=== PATIENT | female | born 1970 | race Caucasian/White ===

== ENCOUNTER 2020-08-06 13:00 | Observation (INO) ==
[2020-08-06 14:33] LABS: Basophils # 0.1 K/mcL (0.0-0.2); Hematocrit 42.6 % (35.3-44.9); Hemoglobin 14.3 g/dL (11.5-15.4); Mean Corpuscular HGB Conc 33.6 g/dL (31.6-35.5); Mean Corpuscular Hemoglobin 31.3 pg (28.0-33.3); Mean Corpuscular Volume 93.2 fL (83.0-100.0); Mean Platelet Volume 9.8 fL (9.4-12.4); Monocytes # 0.6 K/mcL (0.0-1.3); Platelet Count 330 K/mcL (140-400); Red Blood Count 4.57 M/mcL (3.82-4.97); Red Cell Distribution Width 12.5 % (11.5-14.5); White Blood Count 8.6 K/mcL (4.3-11.1)
[2020-08-06] MEDS ORDERED: *HR* Labetalol 20 MG/4 ML SYRINGE IVP ONE ×2 (14:58→16:20)
[2020-08-06 15:02] LABS: Bilirubin,Urine Negative (Negative); Blood,Urine Large (Negative); Clarity,Urine Clear (Clear); Color,Urine Colorless (Yellow); Glucose,Urine (UA) Normal (Normal); Ketones,Urine Negative (Negative); Leukocyte Esterase,Urine Negative (Negative); Nitrite,Urine Negative (Negative); Protein,Urine 30 mg/dL (Neg-Trace); Urobilinogen,Urine Normal (Normal)
[2020-08-06 15:02] LABS: BUN/Creatinine Ratio 13 (6-26); Blood Urea Nitrogen 9 mg/dL (6-20); Calcium 8.8 mg/dL (8.6-10.3); Carbon Dioxide 26 mEq/L (23-29); Chloride 107 mEq/L (98-107); Chol/HDL Ratio 3.7 (0-4.9); Cholesterol 136 mg/dL (< 200); Glucose 100 mg/dL (70-105); HDL Cholesterol 37 mg/dL (40-59); LDL Cholesterol,Calculated 71 mg/dL (< 100); Osmolality,Calculated 285 (280-300); Potassium 4.1 mEq/L (3.5-5.1); Sodium 138 mEq/L (136-145); Triglycerides 142 mg/dL (< 150); eGFR For African Americans > 60 (> 60); eGFR For Non-African Americans > 60 (> 60)
[2020-08-06 15:06] LABS: Eosinophils # 0.4 K/mcL (0.0-0.6); Lymphocytes # 3.3 K/mcL (0.6-4.6); Neutrophils # 4.2 K/mcL (1.6-8.9); Platelet Estimate Normal (Normal); Reactive Lymphocytes Present (Not Present)
[2020-08-06 15:17] LABS: Troponin I < 0.03 ng/mL (< 0.04)
[2020-08-06] MEDS ORDERED: Aspirin 325 MG TABLET PO ONE (15:30)
[2020-08-06] MEDS ORDERED: lisinopriL 20 MG TABLET PO SCH (16:30)
[2020-08-06] MEDS ORDERED: Naloxone 0.4 MG/ML INJ IVP PRN (17:05)
[2020-08-06] MEDS ORDERED: Ondansetron 4 MG/2 ML VIAL IVP PRN (17:05)
[2020-08-06] MEDS ORDERED: *HR* Labetalol 20 MG/4 ML SYRINGE IVP PRN (17:39)
[2020-08-06 18:07] LABS: Thyroid Stimulating Hormone 0.102 mcIU/mL (0.340-5.600)
[2020-08-06] MEDS ORDERED: amLODIPine 5 MG TABLET PO SCH (19:00)
[2020-08-06] MEDS ORDERED: carvediloL 25 MG TABLET PO SCH (21:00)
[2020-08-06] MEDS ORDERED: 0.9 % Sodium Chloride 250 ML IV PRN (21:10)
[2020-08-06] MEDS ORDERED: 0.9 % Sodium Chloride 250 ML ONE (21:13)
[2020-08-07] MEDS: Nicotine 14 MG PATCH.TD24 TD SCH ×2 (00:03→08:49)
[2020-08-07] MEDS: Acetaminophen 325 MG TABLET PO PRN ×2 (02:03→09:17)
[2020-08-07 02:41] LABS: Basophils # 0.1 K/mcL (0.0-0.2); Basophils % 0.5 %; Eosinophils # 0.4 K/mcL (0.0-0.6); Eosinophils % 3.7 %; Hematocrit 39.3 % (35.3-44.9); Hemoglobin 13.3 g/dL (11.5-15.4); Immature Granulocytes % 0.4 % (0-4); Lymphocytes # 1.8 K/mcL (0.6-4.6); Lymphocytes % 17.4 %; Mean Corpuscular HGB Conc 33.8 g/dL (31.6-35.5); Mean Corpuscular Hemoglobin 31.4 pg (28.0-33.3); Mean Corpuscular Volume 92.9 fL (83.0-100.0); Monocytes # 0.7 K/mcL (0.0-1.3); Monocytes % 6.9 %; Neutrophils # 7.3 K/mcL (1.6-8.9); Platelet Count 300 K/mcL (140-400); Red Blood Count 4.23 M/mcL (3.82-4.97); Red Cell Distribution Width 12.5 % (11.5-14.5); Segmented Neutrophils % 71.1 %; White Blood Count 10.2 K/mcL (4.3-11.1)
[2020-08-07 03:00] LABS: BUN/Creatinine Ratio 16 (6-26); Blood Urea Nitrogen 15 mg/dL (6-20); Calcium 8.5 mg/dL (8.6-10.3); Carbon Dioxide 21 mEq/L (23-29); Chloride 107 mEq/L (98-107); Glucose 112 mg/dL (70-105); Magnesium 1.7 mg/dL (1.6-2.6); Osmolality,Calculated 284 (280-300); Potassium 3.5 mEq/L (3.5-5.1); Sodium 136 mEq/L (136-145); Troponin I < 0.03 ng/mL (< 0.04); eGFR For African Americans > 60 (> 60); eGFR For Non-African Americans > 60 (> 60)
[2020-08-07 08:49] VITALS: BP 150/87
[2020-08-07] MEDS ORDERED: amLODIPine 5 MG TABLET PO SCH (09:00)
[2020-08-07 10:46] LABS: Triiodothyronine (T3) Free 3.16 pg/mL (2.50-3.90)
[2020-08-07] MEDS ORDERED: lisinopriL 20 MG TABLET PO SCH (18:00)
== END 2020-08-07 14:57 | disposition home or self-care (01) ==
LOC: 2NENU 13:00 → EMEROOARM 13:00 → SUATTDRO 17:29 → 2NENU 18:16
PROVIDERS: ADMIT Internal Medicine; ATTEND Family Medicine